=== PATIENT | male | born 1940 | race Caucasian/White ===

== ENCOUNTER 2021-06-15 11:02 | Emergency (ER) | payer MEDICARE, BC, SELFPAY ==
--- NOTE | ~2021-06-15 | XR_ITS ---
EXAMINATION: XR hand RT min 3V, XR wrist RT min 3V EXAM DATE: 06/15/2021 11:43 (accession [id number]), 06/15/2021 11:44 (accession [id number]) INDICATION: Fell X 2 Wks Ago. Generalized Pain since. TECHNIQUE: Right hand frontal, lateral and oblique projections obtained and reviewed. Right wrist fro ntal, frontal with ulnar deviation, oblique and lateral projections obtained and reviewed. There is no prior study for comparison. FINDINGS: There is acute closed posttraumatic tiny chip fracture off of the right scaphoid identified on the oblique projections. This is essentially nondisplaced. No fracture through the scaphoid waist or hand fractures. 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 IMPRESSION: Acute right scaphoid chip fracture laterally. Reviewed, dictated and finalized at location A. [employer] IMPRESSION: Acute right scaphoid chip fracture laterally.
--- NOTE | 2021-06-15 11:12 | ED.UPPEXIN ---
HPI - Extremity Injury (Upper) General Chief Complaint: Extremity Injury, Upper Stated Complaint: Right Hand/ Wrist Injury Time Seen by Provider: 06/15/21 11:50 Source: patient and RN notes reviewed Mode of arrival: ambulatory Limitations: no limitations History of Present Illness HPI narrative: 80-year-old male presents concern for right wrist and hand pain. Reports 2 weeks ago he fell off of a curb catching himself on his right hand. Reports that time he had right knee pain and right hip pain which has since resolved, however the hand pain persist. Reports he is tried multiple [id number] splints and braces without relief. He denies decree strength or sensation in the hand or digits. MD complaint: injury to: right and hand Related Data Home Medications Medication Instructions Recorded Confirmed alfuzosin 10 mg PO DAILY 06/15/21 06/15/21 amlodipine 5 mg PO DAILY 06/15/21 06/15/21 atorvastatin 20 mg PO DAILY 06/15/21 06/15/21 brimonidine-timolol [Combigan] 1 drp EACH EYE BID 06/15/21 06/15/21 finasteride 5 mg PO DAILY 06/15/21 06/15/21 irbesartan 300 mg PO DAILY 06/15/21 06/15/21 latanoprost 1 drp EACH EYE HS 06/15/21 06/15/21 Allergies Allergy/AdvReac Type Severity Reaction Status Date / Time No Known Allergies Allergy Verified 06/15/21 11:21 Review of Systems Review of Systems: CONSTITUTIONAL: Denies malaise, chills, sweats, or fever. CARDIOVASCULAR: Denies chest pain, palpitations, or edema. RESPIRATORY: Denies cough or dyspnea. SKIN: Denies rash or itching, bruising, redness, swelling. MUSCULOSKELETAL: Reports right hand and wrist pain NEUROLOGIC: Denies numbness, weakness All systems reviewed & are unremarkable except as noted in HPI and below PMFSH Comments At time of signature, agree with nursing past medical, surgical, social and family history. There is no relevant family history pertinent to the presenting complaint Exam Narrative: GENERAL: Well-appearing, well-nourished, and in no acute distress. HEAD: Normocephalic, atraumatic. EYES: PERRLA, conjunctivae clear NECK: Supple. CHEST: Speaks in full sentences. No respiratory distress. HEART: Regular rate and rhythm. Normal and equal peripheral pulses. EXTREMITIES: Right hand, wrist, digits have normal strength and sensation, normal range of motion. No edema or ecchymosis. 5/5 strength with wrist and digit flexion and extension. Normal sensation with sensitivity to light touch and pain. Point tenderness to the wrist beneath the first digit. No open wounds, no skin tenting, no devitalized tissue or atrophy, no trophic changes, no obvious deformity, alignment normal, nearby joints and structures intact. Distal pulses palpable and equal bilaterally, skin warm, dry, pink. Capillary refill less than 3 seconds. SKIN: Warm, dry, no rash. NEURO: Alert and oriented x3. PSYCH: Normal mood and affect Course Course Emergency Course: Patient is aware of diagnosis, understands and agrees to treatment plan. Anticipatory guidance given. Patient agrees to follow-up as directed and is aware of reasons to seek care at the emergency department. Portions of this record may have been created with voice recognition software Level of Care: Express Care Visit Vital Signs Vital signs: Reviewed. Patient has history of hypertension Procedures Orthopedic Splinting/Casting Injury #1: Splinting/Casting Date: 06/15/21 Splinting/Casting Time: 12:07 Side: right Upper Extremity Injury Location: wrist OCL: short arm Pre-Procedure Neuro Vascular Exam: normal Post-Procedure Neuro Vascular Exam: normal MDM - Extremity Injury (Upper) MDM Narrative Medical decision making narrative: Patients injury and pain is consistent with musculoskeletal etiology. No signs of neurological or vascular compromise on exam. Compartments and tissues are soft without signs of compartment syndrome. Pain is felt appropriate for further evaluation on an outpatient
[2021-06-15 11:14] VITALS: BP 152/76; PULSE 59; RESP 16; TEMP 37; O2SAT 97
[2021-06-15 11:22] VITALS: BP 152/76; PULSE 59; RESP 16; TEMP 37; O2SAT 97
== END 2021-06-15 12:17 | disposition home or self-care (01) ==
PROVIDERS: Emergency Provider Nurse Practitioner
DX: S62.001A Unspecified fracture of navicular [scaphoid] bone of right wrist, initial encounter for closed fracture (principal); W17.89XA Other fall from one level to another, initial encounter; E78.00 Pure hypercholesterolemia, unspecified; I10 Essential (primary) hypertension; N40.0 Benign prostatic hyperplasia without lower urinary tract symptoms
CPT/HCPCS: 29125; 73110; 73130; 99214; A4565; G0463